=== PATIENT | female | born 1955 | race Caucasian/White ===

== ENCOUNTER → 2017-08-03 | Outpatient (CLI) | payer OTHER | LOC: HYPER 06:39 | DX: E10.621 Type 1 diabetes mellitus with foot ulcer (principal); L97.511 Non-pressure chronic ulcer of other part of right foot limited to breakdown of skin; L97.411 Non-pressure chronic ulcer of right heel and midfoot limited to breakdown of skin; L97.521 Non-pressure chronic ulcer of other part of left foot limited to breakdown of skin; E10.622 Type 1 diabetes mellitus with other skin ulcer; L97.211 Non-pressure chronic ulcer of right calf limited to breakdown of skin; L89.610 Pressure ulcer of right heel, unstageable; L89.890 Pressure ulcer of other site, unstageable; G82.20 Paraplegia, unspecified; L89.150 Pressure ulcer of sacral region, unstageable; G95.11 Acute infarction of spinal cord (embolic) (nonembolic); I25.10 Atherosclerotic heart disease of native coronary artery without angina pectoris; E03.9 Hypothyroidism, unspecified; Z86.718 Personal history of other venous thrombosis and embolism ==

== ENCOUNTER → 2017-08-17 | Outpatient (CLI) | payer OTHER ==
[~2017-08-17] MED LIST: ACETAMINOPHEN325 M3 PO; ACIDOPHILUS1 EAC3 PO; ASPIR 8181 MG PO; BACTRIM DS TAB1 EACH PO; CARVEDILOL3.125 MG PO; CYANOCOBALAMIN5 GM INJECTION; FLOMAX0.4 MG PO; GLUCAGEN1 M2 SUBQ; HUMALOG100 UNIT/2 SUBQ; LASIX 40 MG TAB40 M2 PO; LEVEMIR SUBQ; LEVOTHYROXINE100 MC1 PO; LIORESAL 10 MG10 MG PO; LIPITOR40 MG PO; MELATONIN2.5 MG PO; MEROPENEM1 GM IV; NEURONTIN 300300 M1 PO; NORCO 5-325 TA1 EACH PO; ONDANSETRON HCL4 M2 PO; REGLAN 10 MG TA10 MG PO; SANTYL OINTMENT30 G1 TOP; VANCOMYCIN HCL10 GM PO; VITAMIN D1000 UNIT PO; XARELTO20 MG PO; ZOLOFT50 MG PO
== END ==
LOC: HYPER 11:13
DX: T81.89XD Other complications of procedures, not elsewhere classified, subsequent encounter (principal); E10.22 Type 1 diabetes mellitus with diabetic chronic kidney disease; L97.521 Non-pressure chronic ulcer of other part of left foot limited to breakdown of skin; L97.511 Non-pressure chronic ulcer of other part of right foot limited to breakdown of skin; L89.890 Pressure ulcer of other site, unstageable; L98.491 Non-pressure chronic ulcer of skin of other sites limited to breakdown of skin; L89.610 Pressure ulcer of right heel, unstageable; I10 Essential (primary) hypertension; I25.10 Atherosclerotic heart disease of native coronary artery without angina pectoris; G95.11 Acute infarction of spinal cord (embolic) (nonembolic); G82.20 Paraplegia, unspecified; E03.9 Hypothyroidism, unspecified; Z48.817 Encounter for surgical aftercare following surgery on the skin and subcutaneous tissue; Z86.718 Personal history of other venous thrombosis and embolism; Y83.8 Other surgical procedures as the cause of abnormal reaction of the patient, or of later complication, without mention of misadventure at the time of the procedure

== ENCOUNTER → 2017-08-31 | Outpatient (CLI) | payer OTHER | LOC: HYPER 06:46 | DX: T81.89XD Other complications of procedures, not elsewhere classified, subsequent encounter (principal); E10.621 Type 1 diabetes mellitus with foot ulcer; L97.511 Non-pressure chronic ulcer of other part of right foot limited to breakdown of skin; L97.521 Non-pressure chronic ulcer of other part of left foot limited to breakdown of skin; L97.411 Non-pressure chronic ulcer of right heel and midfoot limited to breakdown of skin; E10.622 Type 1 diabetes mellitus with other skin ulcer; L97.211 Non-pressure chronic ulcer of right calf limited to breakdown of skin; L89.610 Pressure ulcer of right heel, unstageable; L89.154 Pressure ulcer of sacral region, stage 4; I25.10 Atherosclerotic heart disease of native coronary artery without angina pectoris; G95.11 Acute infarction of spinal cord (embolic) (nonembolic); E03.9 Hypothyroidism, unspecified; I10 Essential (primary) hypertension; Z86.718 Personal history of other venous thrombosis and embolism; Z48.817 Encounter for surgical aftercare following surgery on the skin and subcutaneous tissue; Y83.8 Other surgical procedures as the cause of abnormal reaction of the patient, or of later complication, without mention of misadventure at the time of the procedure ==

== ENCOUNTER → 2017-09-30 | Outpatient (CLI) | payer OTHER | LOC: HYPER 09-14 16:25 | DX: T81.89XD Other complications of procedures, not elsewhere classified, subsequent encounter (principal); E10.621 Type 1 diabetes mellitus with foot ulcer; L89.894 Pressure ulcer of other site, stage 4; L97.521 Non-pressure chronic ulcer of other part of left foot limited to breakdown of skin; L89.890 Pressure ulcer of other site, unstageable; L97.511 Non-pressure chronic ulcer of other part of right foot limited to breakdown of skin; L89.610 Pressure ulcer of right heel, unstageable; L97.411 Non-pressure chronic ulcer of right heel and midfoot limited to breakdown of skin; L89.620 Pressure ulcer of left heel, unstageable; L97.421 Non-pressure chronic ulcer of left heel and midfoot limited to breakdown of skin; I10 Essential (primary) hypertension; I25.10 Atherosclerotic heart disease of native coronary artery without angina pectoris; E03.9 Hypothyroidism, unspecified; G95.11 Acute infarction of spinal cord (embolic) (nonembolic); G82.20 Paraplegia, unspecified; Z86.718 Personal history of other venous thrombosis and embolism; Y83.8 Other surgical procedures as the cause of abnormal reaction of the patient, or of later complication, without mention of misadventure at the time of the procedure ==

== ENCOUNTER → 2017-10-15 | Outpatient (CLI) | payer OTHER | LOC: MRI 08:22 | DX: L89.159 Pressure ulcer of sacral region, unspecified stage (principal); R60.0 Localized edema ==

== ENCOUNTER 2018-01-03 07:13 | Inpatient (IN) | payer OTHER ==
[~2018-01-03] VITALS: Ht 160 cm; Wt 63.0 kg
--- NOTE | ~2018-01-03 | O ---
[facility] [place] [address] OPERATIVE REPORT Name: JOSEBEULAH Room #: 424-P ADM IN M.R.#: [id number] Admission: 01/03/18 Attend Phys: Demetrio Sim MD Discharge: Date of : 57 Report #: [id number] THIS REPORT FOR: //name// CC: Newton Randall MD DATE OF SERVICE: 01/06/2018 SURGEON: Conrad Uribe M.D. WILD ANIMAL CARETAKER: None. PREOPERATIVE DIAGNOSES: 1. Stage 4 sacral decubitus ulcer. 2. Multiple bilateral lower extremity decubitus ulcers. 3. Paraplegia. 4. History of spinal stroke. 5. Protein-calorie malnutrition. POSTOPERATIVE DIAGNOSES: 1. Stage 4 sacral decubitus ulcer. 2. Multiple bilateral lower extremity decubitus ulcers. 3. Paraplegia. 4. History of spinal stroke. 5. Protein-calorie malnutrition. PROCEDURES: 1. Application of skin substitute (PriMatrix) to sacral decubitus ulcer (90 cm2) after a mechanical/ultrasonic debridement of sacral decubitus ulcer. 2. Excisional debridement of bilateral lower extremity decubitus ulcers including skin and subcutaneous tissue (a total starting area 72 cm2; ending total area 88 cm2). 3. Mechanical/ultrasonic debridement of bilateral lower extremity decubitus ulcers (88 cm2). ANESTHESIA: General endotracheal anesthesia and local anesthetic. ESTIMATED BLOOD LOSS: 15 mL. SPECIMEN: Bilateral lower extremity skin and subcutaneous tissue. COMPLICATIONS: None appreciated. INDICATIONS FOR PROCEDURE: This is a 62-year-old female patient known to [facility] [address] [address] OPERATIVE REPORT Name: BEULAH GARCIA Room #: 424-P ADM IN M.R.#: [id number] Admission: 01/03/18 Attend Phys: Demetrio Sim MD Discharge: Date of : 57 Report #: [id number] from previous sacral debridement as well as a previous PEG tube placement and diverting loop colostomy. The patient is paraplegic from a spinal stroke. She has undergone excisional and mechanical debridement of her stage 4 sacral decubitus ulcers as recently as 10/27/2017. She represented with new development of bilateral lower extremity decubitus ulcers. She presents now for excisional and ultrasonic debridement of her wounds. OPERATIVE FINDINGS: The sacral wound was 90 square cm. There was no exposed bone. She had multiple bilateral lower extremity decubitus ulcers, greater on the right with a total area of 88 cm2 and the starting area a 72 cm2. The excised tissue was slightly larger than what was measured. A good blood supply was present to all areas. The sacral decubitus ulcer was amenable to the application of PriMatrix skin substitute to help boost wound healing. At the conclusion of the operation, sponge, needle and instrument counts were correct. DESCRIPTION OF PROCEDURE IN DETAIL: After the risks, benefits and expectations of the operation were discussed in detail with the patient and her , informed consent was obtained. The patient was identified in the preoperative holding area. She was given IV sedation and she was intubated without incident. She was then placed in the prone position on the operating room table. Her sacral area as well as bilateral lower extremities were prepped and draped in the standard sterile fashion. A time-out was performed to identify the correct patient and procedure. The sacral wound procedure was performed first. Local anesthetic was infiltrated into the skin and subcutaneous tissue. A curette was used to mechanically debride the entire surface area of the wound. Findings were as noted above. Bleeding points were made hemostatic with electrocautery. The Misonix ultrasonic device was then used to mechanically/ultrasonically debride the entire surface area of the sacral decubitus ulcer. Bleeding points were again made hemostatic with electrocautery. After ensuring hemostasis, PriMatrix was applied to the entire surface area of the wound. The mesh was approximated to the underlying tissue with simple interrupted 2-0 Vicryl sutures. Excisional and ultrasonic debridement of the lower extremity wound was undertaken next in a similar fashion for all. Local anesthetic was infiltrated into the skin and subcutaneous tissue. Sharp #10 blade scalpel was then used to excise the necrotic tissue down to healthy bleeding tissue. Bleeding points were made hemostatic with electrocautery. The right lower extremity posterolateral wound required epinephrine for assistance with hemostasis. After excisionally debriding all wounds, the tissue was sent for specimen. There was no evidence for gross infection. The Misonix ultrasonic debridement device was then used to mechanically/ultrasonically debride the multiple wounds on her right and left lower extremity. A gentle ooze of blood was present from all areas. No major bleeding points were present. The lower extremity wounds were then dressed with wet-to-dry gauze, ABD pads and sterile wraps. [facility] [address] [place] [address] OPERATIVE REPORT Name: BEULAH GARCIA Room #: 424-P [facility] IN M.R.#: [id number] Admission: 01/03/18 Attend Phys: Demetrio Sim MD Discharge: Date of : 57 Report #: [id number] wound was dressed with Adaptic, a normal saline wet-to-dry dressing, an ABD pad and tape. The patient tolerated all procedures well. She was returned to the supine position, awakened, extubated and taken to the recovery room in stable condition with no apparent intraoperative complications. <ELECTRONICALLY SIGNED> By: Conrad Uribe MD, FACS 01/07/18 1434 [id number] Conrad Uribe MD, FACS /nt
--- NOTE | ~2018-01-03 | PATH ---
[facility] [address] [place] [address] PATHOLOGY RPT PROCEDURE Name: AISHA PEREZ Room #: 424-P [facility] IN M.R.#: [id number] Admission: 01/03/18 Date of : 57 Discharge: 01/12/18 Report #: [id number] Path Case #: [id number] [facility] Accession Number: [id number] . 01 Material submitted: . SKIN AND SUBCUTANEOUS TISSUE, SACRAL REGION . 01 Clinical history: . Decubitus ulcer and BLE ulcers . 02 Diagnosis: Skin and subcutaneous tissue, debridement: - Gangrenous necrosis and fibrinoid degeneration, compatible with the provided history of ulcer. (IUV:dena; 01/07/2018) QMS/01/07/2018 . 02 Electronically signed: . Jayla Glaser MD, Pathologist NPI- [id number] . 01 Gross description: . The specimen is received in formalin, labeled "Perez, Aisha, skin and subcutaneous tissue sacral region per demographics" and consists of multiple segments of pink-brown to green and necrotic skin/soft tissue measuring 4.6 x 4.0 x 0.8 cm in aggregate. Registered Nurse Maternal Child sections are submitted in A1. (SDY; 01/06/2018) SYU/SYU . 02 Pathologist provided ICD-10: I96 . 02 CPT . 150625 Specimen Comment: A courtesy copy of this report has been sent to Specimen Comment: [phone], , , . Specimen Comment: Report sent to , , Specimen Comment: and Performed at: [address], [place] [id number] MD Zechariah Mejia MD Phone: [phone] Performed at: [address] [id number] MD Jayla Glaser MD Phone: [phone]
--- NOTE | ~2018-01-03 | HC ---
[facility] [place] [address] CONSULTATION Name: BEULAH GARCIA Room #: 424-P ADM IN M.R.#: [id number] Admission: 01/03/18 Attend Phys: Demetrio Sim MD Discharge: Date of : 57 Report #: [id number] THIS REPORT FOR: //name// CC: Demetrio Randall DATE OF SERVICE: 01/03/2018 Infectious Diseases Consultation REASON FOR CONSULTATION: I was asked to evaluate concerning sacral osteomyelitis. HISTORY OF PRESENT ILLNESS: The patient is a 62-year-old, known from her previous hospitalization, most recently end of October. She is paraplegic from a spinal stroke. She has undergone several debridements of her sacrum wound along with prolonged IV antibiotic therapy throughout the past year. She has also had a diverting loop colostomy and a PEG tube placed. She has a suprapubic catheter. Following discharge, 11/08/2017, she was cared for at a local residential unit. She completed her IV antibiotic therapy this past week. She discharged home only to have her wounds worsen. Admitted through the wound care clinic now because of such. No documented fever, chills or sweats. REVIEW OF SYSTEMS: Notes no cough or sputum production. She has had no chest pain. No change in mentation. Her abdominal tubes remain stable. Good stool output. Good urine output. Tolerating tube feeding. A 10-point review of systems otherwise negative. PAST MEDICAL HISTORY: Diabetes, heart disease, hypertension, spinal stroke, hyperlipidemia, , hysterectomy, appendectomy, suprapubic catheter, diverting loop colostomy, PEG tube, and multiple excisional debridements of her stage IV sacral decubitus. ALLERGIES: CEPHALEXIN, PENICILLIN, SULFA, DABIGATRAN. MEDICATIONS: As noted on her MAR, now on vancomycin and meropenem. FAMILY HISTORY: Noncontributory. SOCIAL HISTORY: Nonsmoker, no significant alcohol intake. PHYSICAL EXAMINATION: GENERAL: She was alert and cooperative. No acute distress. Appeared her stated age, white female. HEENT: Pupils were equal, round, and reactive to light. No scleral icterus. [address] [address] CONSULTATION Name: BEULAH GARCIA Room #: 424-P ADM IN M.R.#: [id number] Admission: 01/03/18 Attend Phys: Demetrio Sim MD Discharge: Date of : 57 Report #: [id number] No conjunctivitis. Mouth without mucositis. NECK: Supple. LUNGS: Clear. HEART: Regular, without murmur. ABDOMEN: Soft and nontender. No hepatosplenomegaly or mass. PEG tube site was unremarkable. Colostomy site was unremarkable with good stool output. Suprapubic catheter without surrounding erythema or drainage. BACK: Normal to inspection with no wounds. She was paraplegic. Cranial nerves intact. Mood normal. EXTREMITIES: Without significant edema or cyanosis. No palpable lymphadenopathy. SKIN: With several patches of psoriasis. She had a stage IV sacral decubitus, which was packed. No surrounding cellulitis. Bilateral heel wounds, which were dressed and dry. LABORATORY STUDIES: Sodium 132, potassium 4.4, bicarbonate of 20, creatinine 1.3, alkaline phosphatase 163, ALT 27. Hemoglobin 9.4, platelet count 525,000, WBC 17.2. Blood cultures negative to date. IMPRESSION: A 62-year-old diabetic with hypertension, coronary artery disease, paraplegic with nonhealing wound to the sacrum. Given the duration of this process, I am suspecting underlying osteomyelitis. The patient will require further surgical debridement. Interesting that she worsened after transferring home from residential unit. Unclear as to the issues that have changed at home. She has pressure wounds to both heels. RECOMMENDATIONS: We will continue IV antibiotic support. Obtain sedimentation rate. Await surgical debridement tomorrow. Obtain tissue cultures. Following her debridement, we will determine antibiotic therapy and duration. We will likely need placement again after this. <ELECTRONICALLY SIGNED> By: Newton Gaviria MD 01/05/18 0933 [id number] Newton Gaviria MD /nt
[~2018-01-03 07:13] MED LIST changes: +LEVAQUIN 750 M750 MG PO; +LISINOPRIL20 MG PO; +MEROPENEM 1 GM V1 GM IVPB; +VANCOMYCIN5 GM/VIAL IV
[2018-01-03] MEDS ORDERED: FOLIC ACID1 MG PO (13:06)
[2018-01-03] MEDS ORDERED: LEVEMIR100 UNIT/1 SUBQ (13:11)
[2018-01-03] MEDS ORDERED: HUMALOG100 UNIT/1 SUBQ (13:11)
[2018-01-03] MEDS ORDERED: ALLERGY EYE DROP5 ML OTIC (13:14)
[2018-01-03] MEDS ORDERED: CLARITIN10 MG PO (13:15)
[2018-01-03] MEDS ORDERED: UNICOMPLEX M TA1 TA1 PO (13:16)
[2018-01-03] MEDS ORDERED: ARTIFICIAL TEAR15 ML OP (13:19)
[2018-01-03] MEDS ORDERED: VITAMINC500 PO (13:22)
[2018-01-03] MEDS ORDERED: B-12 DOTS500 MCG PO (13:26)
[2018-01-03] MEDS ORDERED: IRON325 PO (13:26)
[2018-01-03 14:31] LABS: HEMATOCRIT 30.2 % (37.0-47.0); HEMOGLOBIN 9.4 gm/dL (12.0-15.0); MCH 27.8 pg (26.0-34.0); MCHC 31.2 g/dL (28.0-37.0); MCV 89.1 fL (80.0-100.0); RBC 3.39 mil/uL (4.20-5.00); RDW 19.6 % (10.5-14.5); WBC 17.2 thou/uL (4.0-11.0)
[2018-01-03 14:34] VITALS: BP 86/33
[2018-01-03 14:37] LABS: CALCIUM 9.1 mg/dL (8.5-10.1); CREATININE 1.2 mg/dL (0.6-1.0); POTASSIUM 4.3 mmol/L (3.5-5.1)
[2018-01-03 14:42] LABS: PROTIME 10.3 Seconds (9.3-11.4)
[2018-01-03 14:45] LABS: ALBUMIN 2.3 g/dL (3.4-5.0); TOTAL BILIRUBIN 0.2 mg/dL (<0.1-1.0); TOTAL PROTEIN 7.6 g/dL (6.4-8.2)
[2018-01-03 16:18] VITALS: BP 81/34
[2018-01-03 20:20] VITALS: BP 81/30
[2018-01-04 03:35] VITALS: BP 71/27
[2018-01-04 06:28] LABS: CALCIUM 8.3 mg/dL (8.5-10.1); CREATININE 1.3 mg/dL (0.6-1.0); POTASSIUM 4.4 mmol/L (3.5-5.1)
[2018-01-04 07:35] VITALS: BP 81/25
[2018-01-04 19:49] VITALS: BP 78/31
[2018-01-04 23:52] VITALS: BP 92/33
[2018-01-05] VITALS (8 sets, daily range): BP systolic 75–98; BP diastolic 29–38
[2018-01-05 04:18] LABS: CALCIUM 8.5 mg/dL (8.5-10.1); CREATININE 1.3 mg/dL (0.6-1.0); POTASSIUM 4.3 mmol/L (3.5-5.1)
[2018-01-05 05:16] LABS: ABSOLUTE NEUTROPHILS 7.4 thou/uL (1.4-8.2); WBC 11.6 thou/uL (4.0-11.0)
[2018-01-05 05:18] LABS: EOSINOPHILS 5.8 % (0.0-3.0); HEMATOCRIT 20.2 % (37.0-47.0); LYMPHOCYTES 19.5 % (24.0-44.0); MCHC 32.8 g/dL (28.0-37.0); MCV 88.5 fL (80.0-100.0); MONOCYTES 8.8 % (1.0-8.0); POLYS 63.9 % (36.0-66.0); RBC 2.28 mil/uL (4.20-5.00); RDW 18.9 % (10.5-14.5)
[2018-01-05 05:21] LABS: HEMOGLOBIN 6.6 gm/dL (12.0-15.0); PLATELET COUNT 384 thou/uL (150-400)
[2018-01-05 07:23] LABS: HEMATOCRIT 21.2 % (37.0-47.0); HEMOGLOBIN 7.2 gm/dL (12.0-15.0)
[2018-01-05 16:44] LABS: URINE BILIRUBIN NEGATIVE (Negative); URINE BLOOD 3+ (Negative); URINE CLARITY CLEAR; URINE COLOR YELLOW; URINE GLUCOSE-RANDOM* 2+ (Negative); URINE KETONES 1+ (Negative); URINE LEUKOCYTES-REFLEX 2+ (Negative); URINE NITRITE-REFLEX NEGATIVE (Negative); URINE PROTEIN (DIPSTICK) TRACE (Negative); URINE UROBILINOGEN 0.2 E.U./dl (0.2-1.0)
[2018-01-05 16:52] LABS: YEAST-REFLEX Present (None Seen)
[2018-01-05 16:53] LABS: CALCIUM OXALATE 4-10 Moderate /LPF (None Seen); SQUAMOUS 0-3 Few /LPF (0-3)
[2018-01-05 16:54] LABS: BACTERIA-REFLEX 1-9 Few /HPF (None Seen); CASTS None Seen /LPF (None Seen); URINE RBC 0-2 Rare /HPF (0-2)
[2018-01-05 17:15] LABS: ABSOLUTE NEUTROPHILS 6.1 thou/uL (1.4-8.2); BASOPHILS 0.4 % (0.0-2.0); EOSINOPHILS 7.2 % (0.0-3.0); HEMATOCRIT 24.6 % (37.0-47.0); HEMOGLOBIN 8.3 gm/dL (12.0-15.0); LYMPHOCYTES 20.3 % (24.0-44.0); MCH 28.2 pg (26.0-34.0); MCHC 33.8 g/dL (28.0-37.0); MONOCYTES 10.3 % (1.0-8.0); PLATELET COUNT 357 thou/uL (150-400); POLYS 61.8 % (36.0-66.0); RBC 2.95 mil/uL (4.20-5.00); WBC 9.9 thou/uL (4.0-11.0)
[2018-01-05 17:16] LABS: MCV 83.3 fL (80.0-100.0)
[2018-01-05 17:25] LABS: CALCIUM 8.8 mg/dL (8.5-10.1); CREATININE 1.1 mg/dL (0.6-1.0); POTASSIUM 4.6 mmol/L (3.5-5.1)
[2018-01-06 02:28] VITALS: BP 95/36
[2018-01-06 04:01] VITALS: BP 114/42
[2018-01-06 07:38] LABS: ABSOLUTE NEUTROPHILS 6.6 thou/uL (1.4-8.2); BASOPHILS 3.4 % (0.0-2.0); EOSINOPHILS 7.8 % (0.0-3.0); HEMATOCRIT 24.9 % (37.0-47.0); HEMOGLOBIN 8.2 gm/dL (12.0-15.0); LYMPHOCYTES 15.7 % (24.0-44.0); MCHC 33.1 g/dL (28.0-37.0); MCV 84.6 fL (80.0-100.0); PLATELET COUNT 362 thou/uL (150-400); POLYS 65.1 % (36.0-66.0); RBC 2.95 mil/uL (4.20-5.00); RDW 22.7 % (10.5-14.5); WBC 10.2 thou/uL (4.0-11.0)
[2018-01-06 07:53] LABS: CALCIUM 8.4 mg/dL (8.5-10.1); TOTAL BILIRUBIN 0.3 mg/dL (<0.1-1.0); TOTAL PROTEIN 6.1 g/dL (6.4-8.2)
[2018-01-06 09:15] VITALS: BP 111/38
[2018-01-06 14:00] VITALS: BP 100/44
[2018-01-06 21:05] VITALS: BP 106/41
[2018-01-07 06:40] LABS: ABSOLUTE NEUTROPHILS 8.7 thou/uL (1.4-8.2); BASOPHILS 1.1 % (0.0-2.0); EOSINOPHILS 0.9 % (0.0-3.0); HEMATOCRIT 23.5 % (37.0-47.0); HEMOGLOBIN 7.9 gm/dL (12.0-15.0); LYMPHOCYTES 14.5 % (24.0-44.0); MCH 28.8 pg (26.0-34.0); MCHC 33.8 g/dL (28.0-37.0); MCV 85.1 fL (80.0-100.0); MONOCYTES 6.8 % (1.0-8.0); PLATELET COUNT 356 thou/uL (150-400); POLYS 76.7 % (36.0-66.0); RBC 2.76 mil/uL (4.20-5.00); RDW 21.5 % (10.5-14.5); WBC 11.4 thou/uL (4.0-11.0)
[2018-01-07 06:48] LABS: CALCIUM 8.6 mg/dL (8.5-10.1); CREATININE 0.9 mg/dL (0.6-1.0); POTASSIUM 4.5 mmol/L (3.5-5.1)
[2018-01-07 08:30] VITALS: BP 113/37
[2018-01-07 20:09] VITALS: BP 103/45
[2018-01-08 04:38] VITALS: BP 107/47
[2018-01-08 05:49] LABS: ABSOLUTE NEUTROPHILS 8.7 thou/uL (1.4-8.2); BASOPHILS 1.3 % (0.0-2.0); EOSINOPHILS 4.2 % (0.0-3.0); HEMATOCRIT 21.3 % (37.0-47.0); HEMOGLOBIN 7.1 gm/dL (12.0-15.0); LYMPHOCYTES 17.8 % (24.0-44.0); MCH 28.3 pg (26.0-34.0); MCHC 33.5 g/dL (28.0-37.0); MCV 84.6 fL (80.0-100.0); MONOCYTES 8.3 % (1.0-8.0); PLATELET COUNT 331 thou/uL (150-400); POLYS 68.4 % (36.0-66.0); RBC 2.52 mil/uL (4.20-5.00); RDW 21.3 % (10.5-14.5); WBC 12.7 thou/uL (4.0-11.0)
[2018-01-08 06:10] LABS: CALCIUM 8.4 mg/dL (8.5-10.1); CREATININE 0.9 mg/dL (0.6-1.0); POTASSIUM 4.2 mmol/L (3.5-5.1)
[2018-01-08 07:03] VITALS: BP 107/36
[2018-01-08 17:13] VITALS: BP 108/48
[2018-01-08 21:20] VITALS: BP 104/39
[2018-01-09 04:32] VITALS: BP 116/40
[2018-01-09 08:06] VITALS: BP 116/43
[2018-01-09 10:38] LABS: HEMATOCRIT 22.6 % (37.0-47.0); HEMOGLOBIN 7.5 gm/dL (12.0-15.0); MCH 28.1 pg (26.0-34.0); MCHC 33.3 g/dL (28.0-37.0); MCV 84.3 fL (80.0-100.0); RBC 2.68 mil/uL (4.20-5.00); WBC 11.9 thou/uL (4.0-11.0)
[2018-01-09 11:02] LABS: ALBUMIN 1.6 g/dL (3.4-5.0); CREATININE 0.8 mg/dL (0.6-1.0); POTASSIUM 4.1 mmol/L (3.5-5.1); TOTAL BILIRUBIN 0.1 mg/dL (<0.1-1.0); TOTAL PROTEIN 5.5 g/dL (6.4-8.2)
[2018-01-09 15:29] LABS: ALBUMIN 1.6 g/dL (3.4-5.0); DIRECT BILIRUBIN < 0.1 mg/dL (<0.1-0.3); SGOT 19 U/L (15-37); SGPT 17 U/L (30-65); TOTAL BILIRUBIN 0.2 mg/dL (<0.1-1.0); TOTAL PROTEIN 5.4 g/dL (6.4-8.2)
[2018-01-09 16:15] LABS: TSH 1.414 uIU/mL (0.358-3.740)
[2018-01-09 16:53] LABS: FOLIC ACID > 40.0 ng/mL (8.6-58.9)
[2018-01-09 20:32] VITALS: BP 95/36
[2018-01-10] VITALS (7 sets, daily range): BP systolic 78–118; BP diastolic 31–45
[2018-01-10 04:04] LABS: CALCIUM 8.3 mg/dL (8.5-10.1); CREATININE 0.8 mg/dL (0.6-1.0); POTASSIUM 4.4 mmol/L (3.5-5.1)
[2018-01-10 04:06] LABS: BASOPHILS 1.3 % (0.0-2.0); EOSINOPHILS 9.3 % (0.0-3.0); HEMATOCRIT 21.1 % (37.0-47.0); LYMPHOCYTES 22.9 % (24.0-44.0); MCH 28.7 pg (26.0-34.0); MCHC 33.4 g/dL (28.0-37.0); MCV 85.9 fL (80.0-100.0); PLATELET COUNT 341 thou/uL (150-400); POLYS 57.5 % (36.0-66.0); RBC 2.46 mil/uL (4.20-5.00); RDW 20.5 % (10.5-14.5); WBC 12.1 thou/uL (4.0-11.0)
[2018-01-10 12:30] LABS: % SATURATION 12 % (20-39); IRON 11 ug/dL (50-170); TIBC 95 ug/dL (250-450)
[2018-01-11 00:01] LABS: HEMATOCRIT 25.4 % (37.0-47.0); HEMOGLOBIN 8.6 gm/dL (12.0-15.0)
[2018-01-11 05:46] LABS: ABSOLUTE NEUTROPHILS 7.4 thou/uL (1.4-8.2); BASOPHILS 1.4 % (0.0-2.0); EOSINOPHILS 8.4 % (0.0-3.0); HEMATOCRIT 24.6 % (37.0-47.0); HEMOGLOBIN 8.2 gm/dL (12.0-15.0); LYMPHOCYTES 17.5 % (24.0-44.0); MCH 28.7 pg (26.0-34.0); MCHC 33.5 g/dL (28.0-37.0); MCV 85.5 fL (80.0-100.0); MONOCYTES 8.1 % (1.0-8.0); PLATELET COUNT 359 thou/uL (150-400); POLYS 64.6 % (36.0-66.0); RBC 2.88 mil/uL (4.20-5.00); RDW 19.5 % (10.5-14.5); WBC 11.5 thou/uL (4.0-11.0)
[2018-01-11 05:59] LABS: CALCIUM 8.4 mg/dL (8.5-10.1); CREATININE 0.8 mg/dL (0.6-1.0); POTASSIUM 4.4 mmol/L (3.5-5.1)
[2018-01-11 07:14] VITALS: BP 107/42
[2018-01-11 21:20] VITALS: BP 108/39
[2018-01-12 06:38] LABS: ABSOLUTE NEUTROPHILS 6.9 thou/uL (1.4-8.2); BASOPHILS 1.2 % (0.0-2.0); EOSINOPHILS 9.9 % (0.0-3.0); HEMATOCRIT 25.2 % (37.0-47.0); HEMOGLOBIN 8.6 gm/dL (12.0-15.0); MCH 29.7 pg (26.0-34.0); MCHC 34.1 g/dL (28.0-37.0); MONOCYTES 9.3 % (1.0-8.0); PLATELET COUNT 376 thou/uL (150-400); POLYS 62.6 % (36.0-66.0); RDW 19.4 % (10.5-14.5)
[2018-01-12 06:50] LABS: CALCIUM 8.9 mg/dL (8.5-10.1); CREATININE 0.8 mg/dL (0.6-1.0); POTASSIUM 4.2 mmol/L (3.5-5.1)
[2018-01-12 08:09] VITALS: BP 114/39
[2018-01-12 08:22] LABS: ANISOCYTOSIS 2+; LARGE PLATELETS FEW
[2018-01-12 08:23] LABS: HYPOCHROMASIA 1+
[2018-01-12] MEDS ORDERED: NORCO 5-325 TA1 EACH PO (14:06)
[2018-01-12] MEDS ORDERED: VENOFER20 MG/ML IVPB (14:06)
[2018-01-12] MEDS ORDERED: MEROPENEM-500 MG/50 IVPB ×2 (14:06→14:17)
[2018-01-12] MEDS ORDERED: VANCO 750750 MG/150 IV (14:06)
[2018-01-12] MEDS ORDERED: UNICOMPLEX M TA1 TA1 PO (14:17)
== END 2018-01-12 17:23 | DRG 853 ==
LOC: HYPER 07:13 → 4E 10:09 → HYPER 14:40 → 4E 01-12 17:23
PROVIDERS: Emergency Medicine Emergency Medical Services; Hospitalist; Internal Medicine
PROC: 30233N1 Transfusion of Nonautologous Red Blood Cells into Peripheral Vein, Percutaneous Approach (ICD-10-PCS; principal; 2018-01-05)
PROC: 0JBP0ZZ Excision of Left Lower Leg Subcutaneous Tissue and Fascia, Open Approach (ICD-10-PCS; 2018-01-06)
PROC: 0JBN0ZZ Excision of Right Lower Leg Subcutaneous Tissue and Fascia, Open Approach (ICD-10-PCS; 2018-01-06)
PROC: 0JB70ZZ Excision of Back Subcutaneous Tissue and Fascia, Open Approach (ICD-10-PCS; 2018-01-06)
DX: A41.9 Sepsis, unspecified organism (principal); L89.613 Pressure ulcer of right heel, stage 3; L89.154 Pressure ulcer of sacral region, stage 4; E43 Unspecified severe protein-calorie malnutrition; G82.20 Paraplegia, unspecified; M86.8X8 Other osteomyelitis, other site; D53.9 Nutritional anemia, unspecified; D50.9 Iron deficiency anemia, unspecified; I12.9 Hypertensive chronic kidney disease with stage 1 through stage 4 chronic kidney disease, or unspecified chronic kidney disease; E86.0 Dehydration; N18.9 Chronic kidney disease, unspecified; E03.9 Hypothyroidism, unspecified; E11.69 Type 2 diabetes mellitus with other specified complication; L89.620 Pressure ulcer of left heel, unstageable; L89.890 Pressure ulcer of other site, unstageable; I25.10 Atherosclerotic heart disease of native coronary artery without angina pectoris; E78.5 Hyperlipidemia, unspecified; Z90.710 Acquired absence of both cervix and uterus; Z98.891 History of uterine scar from previous surgery; Z90.49 Acquired absence of other specified parts of digestive tract; Z88.2 Allergy status to sulfonamides; Z88.0 Allergy status to penicillin; Z88.1 Allergy status to other antibiotic agents; Z88.8 Allergy status to other drugs, medicaments and biological substances; Z79.84 Long term (current) use of oral hypoglycemic drugs; Z79.899 Other long term (current) drug therapy; Z68.24 Body mass index [BMI] 24.0-24.9, adult
CPT/HCPCS: 10783; 27000; 50010; 50101; 50386; 50403; 56526; 57119; 57120; 57136; 62110; 62900; 70005

== ENCOUNTER → 2018-04-27 | Outpatient (CLI) | payer BC ==
[~2018-04-27] MED LIST changes: +ALLERGY EYE DROP5 ML OTIC; +ARTIFICIAL TEAR15 ML OP; +B-12 DOTS500 MCG PO; +CLARITIN10 MG PO; +FOLIC ACID1 MG PO; +HUMALOG100 UNIT/1 SUBQ; +IRON325 PO; +LEVEMIR100 UNIT/1 SUBQ; +MEROPENEM-500 MG/50 IVPB; +UNICOMPLEX M TA1 TA1 PO; +VANCO 750750 MG/150 IV; +VENOFER20 MG/ML IVPB; +VITAMINC500 PO
== END ==
LOC: HYPER 06:42
DX: T81.89XD Other complications of procedures, not elsewhere classified, subsequent encounter (principal); E10.622 Type 1 diabetes mellitus with other skin ulcer; L89.320 Pressure ulcer of left buttock, unstageable; L98.411 Non-pressure chronic ulcer of buttock limited to breakdown of skin; E03.9 Hypothyroidism, unspecified; G82.20 Paraplegia, unspecified; G95.11 Acute infarction of spinal cord (embolic) (nonembolic); I10 Essential (primary) hypertension; I25.10 Atherosclerotic heart disease of native coronary artery without angina pectoris; Z86.718 Personal history of other venous thrombosis and embolism; Z93.3 Colostomy status; Y83.8 Other surgical procedures as the cause of abnormal reaction of the patient, or of later complication, without mention of misadventure at the time of the procedure

== ENCOUNTER → 2018-05-25 | Outpatient (CLI) | payer BC | LOC: HYPER 07:10 | DX: T81.89XD Other complications of procedures, not elsewhere classified, subsequent encounter (principal); E10.622 Type 1 diabetes mellitus with other skin ulcer; L89.220 Pressure ulcer of left hip, unstageable; L98.491 Non-pressure chronic ulcer of skin of other sites limited to breakdown of skin; S80.812A Abrasion, left lower leg, initial encounter; E03.9 Hypothyroidism, unspecified; G82.20 Paraplegia, unspecified; G95.11 Acute infarction of spinal cord (embolic) (nonembolic); I10 Essential (primary) hypertension; I25.10 Atherosclerotic heart disease of native coronary artery without angina pectoris; K21.9 Gastro-esophageal reflux disease without esophagitis; Z86.718 Personal history of other venous thrombosis and embolism; Z79.4 Long term (current) use of insulin; Z79.02 Long term (current) use of antithrombotics/antiplatelets; X58.XXXA Exposure to other specified factors, initial encounter; Y93.89 Activity, other specified; Y92.89 Other specified places as the place of occurrence of the external cause; Y99.8 Other external cause status; Y83.8 Other surgical procedures as the cause of abnormal reaction of the patient, or of later complication, without mention of misadventure at the time of the procedure ==